=== PATIENT | male | born 1985 | race Caucasian/White ===

== ENCOUNTER 2016-09-06 11:53 | Emergency (ER) | payer SELFPAY ==
[~2016-09-06] VITALS: Ht 175.3 cm; Wt 77.1 kg
[~2016-09-06 11:53] MED LIST: HYDR-971 PO; SULF1TAB24 PO
[2016-09-06] MEDS ORDERED: SULF1TAB23 PO (12:42)
[2016-09-06 12:50] VITALS: BP 113/73
--- NOTE | 2016-09-06 13:40 | ED.ADGEN ---
Past Medical History Past Medical History: No Pertinent History Past Surgical History: Other Additional Past Surgical Histo: I&D of facial wound Alcohol Use: Occasionally Drug Use: Methamphetamine Adult General Chief Complaint Chief Complaint: LOWER EXTREMITY SWELLING HPI HPI Patient is a 30 year old male presents to emergency department complaining of abscesses and infection to bilateral lower extremities. Patient has had these before. He notes these have been here approximately one week. He has noted draining from all of them he still continues to have redness and tenderness around them. He denies any fevers or chills. Review of Systems Review of Systems Constitutional: Denies fever or chills. [] Eyes: Denies change in visual acuity. [] HENT: Denies nasal congestion or sore throat. [] Respiratory: Denies cough or shortness of breath. [] Cardiovascular: Denies chest pain or edema. [] GI: Denies abdominal pain, nausea, vomiting, bloody stools or diarrhea. [] : Denies dysuria. [] Musculoskeletal: Denies back pain or joint pain. [] Integument: Denies rash. [] Neurologic: Denies headache, focal weakness or sensory changes. [] Endocrine: Denies polyuria or polydipsia. [] Lymphatic: Denies swollen glands. [] Psychiatric: Denies depression or anxiety. [] Allergies Allergies Allergies Coded Allergies Type Severity Reaction Last Updated Verified I S O L A T I O N *CONTACT* Allergy Unknown 09/06/16 Yes No Known Medication Allergies Allergy Unknown 09/06/16 Yes Physical Exam Physical Exam Constitutional: Well developed, well nourished, no acute distress, non-toxic appearance. [] HENT: Normocephalic, atraumatic, bilateral external ears normal, oropharynx moist, no oral exudates, nose normal. [] Eyes: PERRLA, EOMI, conjunctiva normal, no discharge. [] Neck: Normal range of motion, no tenderness, supple, no stridor. [] Cardiovascular:Heart rate regular rhythm, no murmur [] Lungs & Thorax: Bilateral breath sounds clear to auscultation [] Abdomen: Bowel sounds normal, soft, no tenderness, no masses, no pulsatile masses. [] Skin: Warm, dry, 4 small 1 x 1 cm abscesses in various stages of healing on the left lower extremity, the right lower extremity has an area of 8 x 8 cm of erythema with a central eschar that is no longer draining or indurated. Extremities: No tenderness, no cyanosis, no clubbing, ROM intact, no edema. [] Neurologic: Alert and oriented X 3, normal motor function, normal sensory function, no focal deficits noted. [] Psychologic: Affect normal, judgement normal, mood normal. [] Current Patient Data Vital Signs Vital Signs Date Time Temp Pulse Resp B/P Pulse Ox O2 Delivery O2 Flow Rate FiO2 09/06/16 12:50 92 18 113/73 98 Room Air 09/06/16 12:22 98.1 98.1 EKG EKG [] Radiology/Procedures Radiology/Procedures [] Course & Med Decision Making Course & Med Decision Making Pertinent Labs and Imaging studies reviewed. (See chart for details) Patient has been started on Bactrim and given supportive care as well as follow- up and return precautions. Cellulitis [] Dragon Disclaimer Dragon Disclaimer This electronic medical record was generated, in whole or in part, using a voice recognition dictation system. YVETTE BHANDARI MD Sep 06, 2016 13:40
== END 2016-09-06 12:51 | disposition home or self-care (01) ==
LOC: ER 11:53
DX: L03.116 Cellulitis of left lower limb (principal); L03.115 Cellulitis of right lower limb; F15.10 Other stimulant abuse, uncomplicated; Z91.041 Radiographic dye allergy status
CPT/HCPCS: 99283

== ENCOUNTER 2019-05-20 19:13 | Emergency (ER) | payer SELFPAY ==
[~2019-05-20] VITALS: Ht 175.3 cm; Wt 77.1 kg
[~2019-05-20 19:13] MED LIST changes: +HYDR-3164 PO; -HYDR-971 PO; +SULF1TAB23 PO
--- NOTE | 2019-05-20 19:35 | PHYS DOC ---
Past Medical History Past Medical History: No Pertinent History Past Surgical History: Other Additional Past Surgical Histo: I&D of facial wound Alcohol Use: Heavy Drug Use: Methamphetamine Adult General Chief Complaint Chief Complaint: ALCOHOL INTOXICATION HPI HPI 33-year-old male presents to the emergency department via EMS secondary to intoxication. Patient states he's done some meth as well as drank alcohol today. Patient was found by PD and subsequently brought to the ER for further evaluation. Patient denies any complaints on examination. Patient denies any chest pain, shortness breath, nausea, vomiting, abdominal pain. He is currently resting comfortably at this time. Patient without SI/HI All other ROS negative unless documented in HPI Review of Systems Review of Systems See Above Allergies Allergies Allergies Coded Allergies Type Severity Reaction Last Updated Verified I S O L A T I O N *CONTACT* Allergy Unknown 09/06/16 Yes No Known Medication Allergies Allergy Unknown 09/06/16 Yes Physical Exam Physical Exam See Above Constitutional: Well developed, well nourished, no acute distress, non-toxic appearance. [] HENT: Normocephalic, atraumatic, bilateral external ears normal, oropharynx moist, no oral exudates, nose normal. [] Eyes: PERRLA, EOMI, conjunctiva normal, no discharge. [] Cardiovascular:Heart rate regular rhythm, no murmur [] Lungs & Thorax: Bilateral breath sounds clear to auscultation [] Abdomen: Bowel sounds normal, soft, no tenderness, no masses, no pulsatile masses. [] Skin: Warm, dry, no erythema, no rash. [] Back: No tenderness, no CVA tenderness. [] Extremities: No tenderness,no edema. [] Neurologic: Alert and oriented X 3, no focal deficits noted. [] Psychologic: intoxicated [] Current Patient Data Vital Signs Vital Signs Date Time Temp Pulse Resp B/P (MAP) Pulse Ox O2 Delivery O2 Flow Rate FiO2 05/21/19 04:36 98 16 93/55 (68) 98 Room Air EKG EKG [] Radiology/Procedures Radiology/Procedures [] Course & Med Decision Making Course & Med Decision Making Pertinent Labs and Imaging studies reviewed. (See chart for details) []33-year-old male presents to the emergency department via EMS secondary to intoxication. Patient states he's done some meth as well as drank alcohol today. Patient was found by PD and subsequently brought to the ER for further evaluation. Patient denies any complaints on examination. Patient denies any chest pain, shortness breath, nausea, vomiting, abdominal pain. He is currently resting comfortably at this time. Patient has no family, states he is from [place]. Patient denies SI/HI. Patient without acute complaints No labs/imaging obtained given no acute complaints or findings on exam Patient reassessed and at baseline - nd home Dragon Disclaimer Dragon Disclaimer This electronic medical record was generated, in whole or in part, using a voice recognition dictation system. Departure Departure Impression: Primary Impression: Alcohol intoxication Additional Impression: Substance abuse Disposition: HOME, SELF-CARE Condition: IMPROVED Referrals: NO PCP (PCP) Patient Instructions: Alcohol Intoxication, [id number], Substance Abuse-Brief Additional Instructions: Follow up with PCP as needed Tylenol/Motrin as needed for pain Cessation of Alcohol and Substance Abuse Problem Qualifiers Primary Impression: Alcohol intoxication Complication of substance-induced condition: uncomplicated Qualified Codes: F10.920 - Alcohol use, unspecified with intoxication, uncomplicated STEPHANE GE MD May 20, 2019 19:35
[2019-05-21 04:36] VITALS: BP 93/55
== END 2019-05-21 05:14 | disposition home or self-care (01) ==
LOC: ER 19:13
DX: F10.229 Alcohol dependence with intoxication, unspecified (principal); Y90.9 Presence of alcohol in blood, level not specified; F15.10 Other stimulant abuse, uncomplicated; Z91.041 Radiographic dye allergy status
CPT/HCPCS: 99283

== ENCOUNTER 2019-09-01 01:15 | Emergency (ER) | payer SELFPAY ==
[~2019-09-01] VITALS: Ht 177.8 cm; Wt 81.8 kg
--- NOTE | 2019-09-01 01:25 | PHYS DOC ---
Past Medical History Past Medical History: No Pertinent History Past Surgical History: Other Additional Past Surgical Histo: I&D of facial wound Smoking Status: Current Every Day Smoker Alcohol Use: Heavy Drug Use: Methamphetamine Adult General Chief Complaint Chief Complaint: ABDOMINAL PAIN HPI HPI Patient is a 33 year old white male who presents via EMS secondary to complaint of epigastric abdominal pain that started approximately 2 hours ago and is currently rated 8/10 located in the epigastric region. No medications taken prior to arrival. Denies nausea, vomiting, diarrhea, fever or chills. He states that his pain is worse with movement. He has had his appendix removed. Review of Systems Review of Systems All other ROS is negative unless otherwise stated in HPI Current Medications Current Medications Current Medications Medications (Trade) Dose Ordered Sig/Alisia Start Time Stop Time Status Last Admin Dose Admin Fentanyl Citrate (Fentanyl 2ml Vial) 50 mcg 1X ONCE 09/01/19 01:45 09/01/19 01:48 DC 09/01/19 02:10 50 MCG Multi-Ingredient Mouthwash/Gargle (Gi Cocktail) 20 ml 1X ONCE 09/01/19 01:45 09/01/19 01:48 DC 09/01/19 01:52 20 ML Ondansetron HCl (Zofran) 4 mg 1X ONCE 09/01/19 01:45 09/01/19 01:48 DC 09/01/19 02:09 4 MG Sodium Chloride 1,000 ml @ 1,000 mls/hr 1X ONCE 09/01/19 01:45 09/01/19 02:44 09/01/19 01:52 1,000 MLS/HR Allergies Allergies Allergies Coded Allergies Type Severity Reaction Last Updated Verified I S O L A T I O N *CONTACT* Allergy Unknown 09/06/16 Yes No Known Medication Allergies Allergy Unknown 09/06/16 Yes Physical Exam Physical Exam See above Constitutional: Well developed, well nourished, no acute distress, non-toxic appearance. [] HENT: Normocephalic, atraumatic, bilateral external ears normal, oropharynx moist, no oral exudates, nose normal. [] Eyes: PERRLA, EOMI, conjunctiva normal, no discharge. [] Neck: Normal range of motion, no tenderness, supple, no stridor. [] Cardiovascular:Heart rate regular rhythm, no murmur [] Lungs & Thorax: Bilateral breath sounds clear to auscultation [] Abdomen: Bowel sounds normal, soft, moderate epigastric tenderness to palpation, no masses, no pulsatile masses. [] Skin: Warm, dry, no erythema, no rash. [] Back: No tenderness, no CVA tenderness. [] Extremities: No tenderness, no cyanosis, no clubbing, ROM intact, no edema. [] Neurologic: Alert and oriented X 3, normal motor function, normal sensory function, no focal deficits noted. [] Psychologic: Affect normal, judgement normal, mood normal. [] Current Patient Data Vital Signs Vital Signs Date Time Temp Pulse Resp B/P (MAP) Pulse Ox O2 Delivery O2 Flow Rate FiO2 09/01/19 02:10 16 98 Room Air 09/01/19 01:15 97.7 73 144/88 (106) 97.7 Lab Values Laboratory Tests Test 09/01/19 01:26 09/01/19 01:41 White Blood Count 6.0 x10^3/uL (4.0-11.0) Red Blood Count 4.93 x10^6/uL (4.30-5.70) Hemoglobin 14.9 g/dL (13.0-17.5) Hematocrit 43.3 % (39.0-53.0) Mean Corpuscular Volume 88 fL (79-100) Mean Corpuscular Hemoglobin 30 pg (25-35) Mean Corpuscular Hemoglobin Concent 34 g/dL (31-37) Red Cell Distribution Width 14.7 % (11.5-14.5) H Platelet Count 332 x10^3/uL (140-400) Neutrophils (%) (Auto) 38 % (31-73) Lymphocytes (%) (Auto) 44 % (24-48) Monocytes (%) (Auto) 11 % (0-9) H Eosinophils (%) (Auto) 5 % (0-3) H Basophils (%) (Auto) 1 % (0-3) Neutrophils # (Auto) 2.3 x10^3/uL (1.8-7.7) Lymphocytes # (Auto) 2.6 x10^3/uL (1.0-4.8) Monocytes # (Auto) 0.7 x10^3/uL (0.0-1.1) Eosinophils # (Auto) 0.3 x10^3/uL (0.0-0.7) Basophils # (Auto) 0.1 x10^3/uL (0.0-0.2) Sodium Level 140 mmol/L (136-145) Potassium Level 4.2 mmol/L (3.5-5.1) Chloride Level 104 mmol/L (98-107) Carbon Dioxide Level 29 mmol/L (21-32) Anion Gap 7 (6-14) Blood Urea Nitrogen 13 mg/dL (8-26) Creatinine 0.9 mg/dL (0.7-1.3) Estimated GFR (Cockcroft-Gault) 96.6 BUN/Creatinine Ratio 14 (6-20) Glucose Level 100 mg/dL (70-99) H Calcium Level 8.9 mg/dL (8.5-10.1) Total Bilirubin 0.3 mg/dL (0.2-1.0) Aspartate Amino Transferase (AST) 55 U/L (15-37) H Alanine Aminotransferase (ALT) 177 U/L (16-63) H Alkaline Phosphatase 141 U/L (46-116) H Troponin I Quantitative < 0.017 ng/mL (0.000-0.055) Total Protein 6.5 g/dL (6.4-8.2) Albumin 3.6 g/dL (3.4-5.0) Albumin/Globulin Ratio 1.2 (1.0-1.7) Lipase 157 U/L (73-393) Ethyl Alcohol Level < 10 mg/dL (0-10) Urine Collection Type Unknown Urine Color Yellow Urine Clarity Clear Urine pH 6.5 Urine Specific [place] 1.015 Urine Protein Negative mg/dL (NEG-TRACE) Urine Glucose (UA) Negative mg/dL (NEG) Urine Ketones (Stick) Negative mg/dL (NEG) Urine Blood Negative (NEG) Urine Nitrite Negative (NEG) Urine Bilirubin Negative (NEG) Urine Urobilinogen Dipstick 0.2 mg/dL (0.2 mg/dL) Urine Leukocyte Esterase Negative (NEG) Urine RBC 0 /HPF (0-2) Urine WBC 0 /HPF (0-4) Urine Squamous Epithelial Cells Occ /LPF Urine Bacteria 0 /HPF (0-FEW) Urine Opiates Screen Neg (NEG) Urine Methadone Screen Neg (NEG) Urine Barbiturates Neg (NEG) Urine Phencyclidine Screen Neg (NEG) Urine Amphetamine/Methamphetamine Neg (NEG) Urine Benzodiazepines Screen Neg (NEG) Urine Cocaine Screen Neg (NEG) Urine Cannabinoids Screen Neg (NEG) Urine Ethyl Alcohol Neg (NEG) Laboratory Tests 09/01/19 01:26 Laboratory Tests 09/01/19 01:26 EKG EKG [] Radiology/Procedures Radiology/Procedures ACUTE ABDOMEN SERIES History: Epigastric pain. Technique: Supine and upright views of the abdomen. Comparison: None. Findings: No consolidation or pleural effusion. Normal heart size. No pneumothorax. No pneumoperitoneum. Several nondilated air-filled loops of small bowel within the mid abdomen. Air and stool scattered throughout the imaged colon. No significant air-fluid levels. Impression: 1. Nonobstructed bowel gas pattern.[] Course & Med Decision Making Course & Med Decision Making Pertinent Labs and Imaging studies reviewed. (See chart for details) 0213: Patient is feeling better after GI cocktail. His abdominal x-ray shows gaseous distention without obstruction. He has no evidence of infection. His liver enzymes are mildly elevated due to unknown significance at this time; I discussed with him when he obtains a primary care physician he should have follow-up on this. At this time the patient is feeling better so we will discharge him home. He states he does not have the means to start on any kind of antacid medication. Dragon Disclaimer Dragon Disclaimer This electronic medical record was generated, in whole or in part, using a voice recognition dictation system. Departure Departure Impression: Primary Impression: Epigastric pain Additional Impression: Elevated liver enzymes Disposition: HOME, SELF-CARE Condition: IMPROVED Referrals: NO PCP (PCP) Patient Instructions: Abdominal Pain (Nonspecific) Additional Instructions: Please try and establish care with a doctor as soon as possible. You should recheck your liver enzymes and 1-2 months. Problem Qualifiers MARK ANTHONY SHAY DO Sep 01, 2019 01:25
[2019-09-01 01:35] LABS: BASO # 0.1 x10^3/uL (0.0-0.2); BASO % 1 % (0-3); EOS # 0.3 x10^3/uL (0.0-0.7); EOS % 5 % (0-3); HEMATOCRIT 43.3 % (39.0-53.0); HEMOGLOBIN 14.9 g/dL (13.0-17.5); LYMPH # 2.6 x10^3/uL (1.0-4.8); LYMPH % 44 % (24-48); MEAN CORPUSCULAR HEMOGLOBIN 30 pg (25-35); MEAN CORPUSCULAR HGB CONC 34 g/dL (31-37); MEAN CORPUSCULAR VOLUME 88 fL (79-100); MONO # 0.7 x10^3/uL (0.0-1.1); MONO % 11 % (0-9); NEUT # 2.3 x10^3/uL (1.8-7.7); NEUT % 38 % (31-73); PLATELET COUNT 332 x10^3/uL (140-400); RED BLOOD COUNT 4.93 x10^6/uL (4.30-5.70); RED CELL DISTRIBUTION WIDTH 14.7 % (11.5-14.5)
--- NOTE | 2019-09-01 01:43 | RAD ---
ACUTE ABDOMEN SERIES History: Epigastric pain. Technique: Supine and upright views of the abdomen. Comparison: None. Findings: No consolidation or pleural effusion. Normal heart size. No pneumothorax. No pneumoperitoneum. Several nondilated air-filled loops of small bowel within the mid abdomen. Air and stool scattered throughout the imaged colon. No significant air-fluid levels. Impression: 1. Nonobstructed bowel gas pattern. Electronically signed by: Kristopher Singh DO (09/01/2019 1:39 AM) [id number]
[2019-09-01] MEDS ORDERED: LIDO:MAALOX 1:1 20 ML SINGLE DOSE. SWSW ONE (01:45)
[2019-09-01] MEDS ORDERED: IV NORMAL SALINE 1000ML BAG 1,000 ML IV ONE (01:45)
[2019-09-01] MEDS ORDERED: ONDANSETRON PF 4 MG/2 ML VIAL. IVP ONE (01:45)
[2019-09-01] MEDS ORDERED: fentaNYL PF VIAL 100 MCG/2 ML VIAL IVP ONE (01:45)
[2019-09-01 01:47] LABS: ALBUMIN 3.6 g/dL (3.4-5.0); ALBUMIN/GLOBULIN RATIO 1.2 (1.0-1.7); CALCIUM 8.9 mg/dL (8.5-10.1); CREATININE 0.9 mg/dL (0.7-1.3); GFR 96.6; POTASSIUM 4.2 mmol/L (3.5-5.1); TOTAL BILIRUBIN 0.3 mg/dL (0.2-1.0); TOTAL PROTEIN 6.5 g/dL (6.4-8.2)
[2019-09-01 01:50] LABS: BILIRUBIN,URINE NEGATIVE (NEG); CLARITY,URINE CLEAR; COLOR,URINE YELLOW; NITRITE,URINE NEGATIVE (NEG); PH,URINE 6.5; PROTEIN,URINE NEGATIVE (NEG-TRACE); UROBILINOGEN,URINE 0.2 mg/dL (0.2 mg/dL)
[2019-09-01 01:57] LABS: BARBITURATES NEG (NEG); BENZODIAZEPINES NEG (NEG); CANNABINOIDS NEG (NEG); COCAINE NEG (NEG); METHADONE NEG (NEG); OPIATES NEG (NEG); PHENCYCLIDINE NEG (NEG)
[2019-09-01 01:59] LABS: BACTERIA,URINE 0 /HPF (0-FEW); RBC,URINE 0 /HPF (0-2); SQUAMOUS EPITHELIAL CELL,UR OCC /LPF; WBC,URINE 0 /HPF (0-4)
[2019-09-01 02:00] LABS: AMPHETAMINE/METHAMPHETAMINE NEG (NEG)
[2019-09-01 02:19] VITALS: BP 122/79
== END 2019-09-01 02:34 | disposition home or self-care (01) ==
LOC: ER 01:15
DX: R10.13 Epigastric pain (principal); R94.5 Abnormal results of liver function studies; F15.90 Other stimulant use, unspecified, uncomplicated; F10.10 Alcohol abuse, uncomplicated; F17.200 Nicotine dependence, unspecified, uncomplicated; Z98.890 Other specified postprocedural states; Z90.89 Acquired absence of other organs
CPT/HCPCS: 36415; 74022; 80053; 80307; 81001; 83690; 84484; 85025; 96374; 96375; 99284; G0480; J2405; J3010; J7030

== ENCOUNTER 2021-01-27 20:30 | Emergency (ER) | payer SELFPAY ==
[~2021-01-27] VITALS: Ht 182.9 cm; Wt 80.0 kg
--- NOTE | 2021-01-27 20:49 | PHYS DOC ---
Past Medical History Past Medical History: No Pertinent History Past Surgical History: Appendectomy, Other Additional Past Surgical Histo: I&D of facial wound Smoking Status: Current Every Day Smoker Alcohol Use: Heavy Drug Use: Methamphetamine General Adult EDM: Chief Complaint: Methamphetamine and alcohol use, HPI: HPI: 35-year-old male with a reported history of alcohol and methamphetamine abuse was brought in by EMS after he was found sleeping outside of a person's house in the yard with his pants off, they had called the police, the patient was speaking in a confused manner so sent to the emergency room. He denies any physical complaints, he says he was drinking alcohol and using methamphetamine, history is not completely obtainable given his intoxication, he denies any suicidal or homicidal thoughts, denies any paranoid ideation, denies any fever, no headache, no chest pain or shortness of breath, Review of Systems: Review of Systems: General: no fevers , no chills, no general weakness Eyes: no blurred vision, no diplopia Skin: no rashes Neck: no swelling, no neck stiffness, no neck pain Heme: no bleeding, no lymph node enlargement Ear/Nose/Throat: No sore throat, no runny nose, no hearing loss, no difficulty swallowing Cardiovascular: no Chest pain, no palpitations Respiratory: No dyspnea, no cough, no hemoptysis Gastrointestinal: No abdominal pain, no nausea, no vomiting, no diarrhea, no blood in stool Genitourinary: no dysuria, no hematuria Musculoskeletal: no back pain, no leg pain, no arm pain, no arthralgia Neurologic: no headaches, no dizziness, no focal numbness/tingling, no focal weakness Psych: Positive for substance abuse, however no suicidal or homicidal thoughts *All review of systems are negative other than what is noted above Heart Score: C/O Chest Pain: No Risk Factors: Risk Factors: DM, Current or recent (<one month) smoker, HTN, HLP, family history of CAD, obesity. Risk Scores: Score 0 - 3: 2.5% MACE over next 6 weeks - Discharge Home Score 4 - 6: 20.3% MACE over next 6 weeks - Admit for Clinical Observation Score 7 - 10: 72.7% MACE over next 6 weeks - Early Invasive Strategies Current Medications: Current Medications Medications (Trade) Dose Ordered Sig/Alisia Start Time Stop Time Status Last Admin Dose Admin Lorazepam (Ativan Inj) 2 mg 1X ONCE 01/27/21 21:00 01/27/21 21:01 Allergies: Allergies: Allergies Coded Allergies Type Severity Reaction Last Updated Verified I S O L A T I O N *CONTACT* Allergy Unknown 09/06/16 Yes No Known Medication Allergies Allergy Unknown 09/06/16 Yes Physical Exam: PE: Gen-well appearing, no acute distress Head- normocephalic/atraumatic ENT: atraumatic, oropharynx clear neck: Supple, full range of motion, strength, no rigidity, no JVD lungs: No distress, speaks in full sentences cardiovascular: Regular rate, no JVD, peripheral circulation intact in all extremities abdomen: atraumatic, nondistended musculoskeletal: Full range of motion and strength in all extremities, atraumatic skin: Intact, no rashes neurologic: Alert and oriented x2, no focal deficits or abnormal movements were difficult to get complete neurologic exam given his intoxication psych: Slightly confused affect however he is alert and oriented, no suicidal homicidal thoughts EKG: EKG: [] Radiology/Procedures: Radiology/Procedures: [] Course & Med Decision Making: Course & Med Decision Making Pertinent Labs and Imaging studies reviewed. (See chart for details) [] Patient brought in by EMS for polysubstance abuse and intoxication of the patient reports methamphetamine and alcohol intoxication, I do not see any localizing neurological planes of deficits on exam, will get labs, will observe him, the patient is mildly agitated on arrival so I will give him some Ativan to help subdue him so we can observe him, no indication for imaging, will closely monitor this patient 934pm update: The patient is uncooperative and trying to pull off his monitor leads and get out of bed, I do believe he is too intoxicated to be discharged we will give him some Ativan and Geodon while we continue to monitor and work-up the patient [id number]: Patient is comfortable, vital signs are normal, he was given some Geodon and Ativan for agitation, I do not believe he is quite ready to be discharged yet but in the next hour or 2 will reassess him and reevaluate the patient 313am patient now awake, alert, clinically sober and ambulatory with steady gait, believe he stable for discharge at this time Patient was seen in the ED for polysubstance abuse including methamphetamine and alcohol he achieved clinical sobriety at this time and is not a threat to harmi ng himself or others and is asymptomatic, there is no apparent evidence of any emergency medical pathology at this time, patient was advised follow-up with their primary care provider /physician in the next 24-48 hours, he does not have one-sided refer him to our on-call primary care family medicine doctor to establish care, and to return to the ED before then if any new or worsening / concerning symptoms had developed. All questions and concerns were addressed at time of disposition Dragon Disclaimer: Dragon Disclaimer: This electronic medical record was generated, in whole or in part, using a voice recognition dictation system. Departure Departure Impression: Primary Impression: Polysubstance abuse Disposition: HOME / SELF CARE / HOMELESS Condition: IMPROVED Referrals: NO PCP (PCP) SARITA GILLIS MD Patient Instructions: Alcohol Intoxication, Methamphetamine Abuse, Complications Additional Instructions: Please do not drink alcohol to excess or use illegal drugs, I am referring you to a primary care doctor to establish care and I recommend that you follow-up within 48 hours, return to the nearest emergency room before that if any new or concerning symptoms develop ANDREW KESSLER MD Jan 27, 2021 20:49
[2021-01-27] MEDS ORDERED: ZIPRASIDONE IM 20 MG VIAL. IM ONE (22:00)
[2021-01-28] VITALS: BP_DIAS 73
[2021-01-28 03:25] VITALS: BP_SYST 128
== END 2021-01-28 03:25 | disposition home or self-care (01) ==
LOC: ER 20:30
DX: F15.10 Other stimulant abuse, uncomplicated (principal); F10.20 Alcohol dependence, uncomplicated; Y90.9 Presence of alcohol in blood, level not specified; F17.200 Nicotine dependence, unspecified, uncomplicated; Z91.041 Radiographic dye allergy status
CPT/HCPCS: 96372; 99285; J2060; J3486

== ENCOUNTER 2021-03-10 08:55 | Emergency (ER) | payer SELFPAY ==
[~2021-03-10] VITALS: Ht 177.8 cm; Wt 79.5 kg
[2021-03-10 10:03] VITALS: BP 107/63
--- NOTE | 2021-03-10 10:59 | PHYS DOC ---
Past Medical History Past Medical History: No Pertinent History Additional Past Medical Histor: substance abuse/etoh Past Surgical History: Appendectomy, Other Additional Past Surgical Histo: I&D of facial wound Smoking Status: Current Every Day Smoker Alcohol Use: Heavy Drug Use: Methamphetamine General Adult EDM: Chief Complaint: LOWER EXT PAIN HPI: HPI: 35-year-old homeless male who denies any significant past medical history presents the ED with complaints of painless "knot on the inside of my thigh" that patient noticed last night after he was jumping in trash cans looking for food. Patient denies any skin injury, fever, chills or unexplained weight loss, dysuria, hematuria or genital rash. Denies any recent flulike symptoms or diarrhea. No history of IV drug use. Review of Systems: Review of Systems: Constitutional: Denies fever or chills. [] Eyes: Denies change in visual acuity. [] HENT: Denies nasal congestion or sore throat. [] Respiratory: Denies cough or shortness of breath. [] Cardiovascular: Denies chest pain or edema. [] GI: Denies nausea or vomiting : Denies dysuria or urethral discharge Musculoskeletal: Denies back pain or joint pain. [] Integument: Denies rash or diaphoresis Neurologic: Denies headache, focal weakness or sensory changes. [] Psychiatric: Denies depression or anxiety. [] Heart Score: C/O Chest Pain: No Risk Factors: Risk Factors: DM, Current or recent (<one month) smoker, HTN, HLP, family history of CAD, obesity. Risk Scores: Score 0 - 3: 2.5% MACE over next 6 weeks - Discharge Home Score 4 - 6: 20.3% MACE over next 6 weeks - Admit for Clinical Observation Score 7 - 10: 72.7% MACE over next 6 weeks - Early Invasive Strategies Allergies: Allergies: Allergies Coded Allergies Type Severity Reaction Last Updated Verified I S O L A T I O N *CONTACT* Allergy Unknown 09/06/16 Yes No Known Medication Allergies Allergy Unknown 09/06/16 Yes Physical Exam: PE: Constitutional: Well developed, well nourished, no acute distress, non-toxic appearance. HENT: Normocephalic, atraumatic, Eyes: EOMI, conjunctiva normal, no discharge. Neck: Normal range of motion, supple, Cardiovascular: S1/2 present, regular rhythm Lungs & Thorax: Speaking in full sentences, bilateral equal chest rise, no tachypnea or increased work of breathing Skin: Warm, dry, no erythema, no rash. [] Extremities: No tenderness, no cyanosis, no lower extremity edema, hard/painless round dime-sized nodule approximately 6 cm inferior from the inguinal crease in middle/medial thigh - no rash/abrasions or skin break Neurologic: Alert and oriented X 3, normal motor function, normal sensory function, no focal deficits noted. [] Psychologic: Affect normal, judgement normal, mood normal. [] Current Patient Data: Vital Signs: Vital Signs Date Time Temp Pulse Resp B/P (MAP) Pulse Ox O2 Delivery O2 Flow Rate FiO2 03/10/21 10:03 99.1 93 22 107/63 (78) 98 Room Air 99.1 EKG: EKG: [] Radiology/Procedures: Radiology/Procedures: [] Course & Med Decision Making: Course & Med Decision Making Pertinent Labs and Imaging studies reviewed. (See chart for details) Concern for right thigh lump that does not appear associated with skin - lesion is painless, nonmobile. Skin exam normal with no abrasions or signs of trauma. There is a broad differential of soft tissue masses. With no leg swelling or signs of DVT. Denies any UTI symptoms or diarrhea. No obvious infection. Will discharge home with strict ED return precautions were given for fever, night sweats or unexplained weight loss. Encouraged urgent outpatient follow-up with PMD and dermatology. Life-threatening processes were considered but are low suspicion at this time, given history, physical exam and ED workup. Pt was educated on all prescription medications and adverse effects. All patient's questions were answered and pt was stable at time of discharge. Life/limb-threatening differential includes but is not limited to, trauma (fracture, dislocation, laceration, compartment syndrome, tendon or ligament injury), neurovascular injury or deficitcva/tia, infection (osteomyelitis, abscess, cellulitis, septic arthritis, necrotizing fasciitis), deep vein thrombosis, renal/cardiac/liver disease, medication adverse effect, lymphedema/anasarca, vascular insufficiency or malignancy, I have spoken with the patient and/or caregivers. I explained the patient's condition, diagnoses and treatment plan based on the information available to me at this time. I have answered the patient and/or caregiver's questions and addressed any concerns. The patient and/or caregivers have a good understanding of patient's diagnosis, condition and treatment plan as can be expected at this point. Vital signs have been stable. Patient's condition is stable and appro priate for discharge from the emergency department. Patient will pursue further outpatient evaluation with primary care physician or other designated or consulting physician as outlined in the discharge instructions. The patient and/or caregivers are agreeable to this plan of care and follow-up instructions have been explained in detail. The patient and/or caregivers have received these instructions in written form and have expressed an understanding of the discharge instructions. The patient and/or caregivers are aware that any significant change of condition or worsening of symptoms should prompt immediate return to this or the closest emergency department or call to [facility] Disclaimer: Kayla Disclaimer: This electronic medical record was generated, in whole or in part, using a voice recognition dictation system. Departure Departure Impression: Primary Impression: Lump of right thigh Disposition: HOME / SELF CARE / HOMELESS Condition: STABLE Referrals: NO PCP (PCP) Follow-up with your primary care physician in 24 to 48 hours OR FOLLOW UP WITH FAMILY MEDICINE: [id number] [facility], [facility] [address] [place] [address] Patient Instructions: Lumpectomy Additional Instructions: Dermatology: FOR DEFINITIVE MANAGEMENT [place] [id number] [facility], [place] [address] EMERGENCY DEPARTMENT GENERAL DISCHARGE INSTRUCTIONS Thank you for coming to [facility] Emergency Department (ED) today and trusting us with you care. We trust that you had a positive experience in our Emergency Department. If you wish to speak to the department management, you may call the Director at [phone]. YOUR FOLLOW UP INSTRUCTIONS ARE FOLLOWS: 1. Do you have a private Doctor? If you do not have a private doctor, please a sk for a resource list of physicians or clinics that may be able to assist you with follow up care. 2. The Emergency Physicain has interpreted your x-rays. The X-Ray specialist will also review them. If there is a change in the findings, you will be notified in 48 hours when at all possible. 3. A lab test or culture has been done, your results will be reviewed and you will be notified if you need a change in treatment. ADDITIONAL INSTRUCTIONS AND INFORMATION: 1. Your care today has been supervised by a physician who is specially trained in emergency care. Many problems require more than one evaluation for a complete diagnosis and treatment. We recommend that you schedule your follow up appointment as recommended to ensure complete treatment of you illness or injury. If you are unable to obtain follow up care and continue to have a problem, or if your condition worsens, we recommend that you return to the ED. 2. We are not able to safely determine your condition over the phone nor are we able to give sound medical advice over the phone. For these safety reasons, if you call for medical advice we will ask you to come to the ED for further evaluation. 3. If you have any questions regarding these discharge instructions please call the ED at [phone]. SAFETY INFORMATION: In the interest of safety, wellness, and injury prevention; we encourage you to wear your sealbelt, if you smoke; quite smoking, and we encourage family to use a protective helmet for bicycling and other sporting events that present an increased risk for head injury. IF YOUR SYMPTOMS WORSEN OR NEW SYMPTOMS DEVELOP, OR YOU HAVE CONCERNS ABOUT YOUR CONDITION; OR IF YOUR CONDITION WORSENS WHILE YOU ARE WAITING FOR YOUR FOLLOW UP APPOINTMENT; EITHER CONTACT YOUR PRIMARY CARE DOCTOR, THE PHYSICIAN WHOSE NAME AND NUMBER YOU WERE GIVEN, OR RETURN TO THE ED IMMEDIATELY. BON CLARK DO Mar 10, 2021 10:59
--- NOTE | 2021-03-10 11:40 | RAD ---
EXAM: Right femur, 2 views. HISTORY: Inner thigh bump. Jumping injury. COMPARISON: None. FINDINGS: Frontal and lateral views of the right femur are obtained. There is no fracture, dislocatio n or subluxation. There is no lytic or sclerotic osseous lesion or periosteal reaction. There is no r adiodense foreign body. IMPRESSION: No acute osseous finding. Electronically signed by: Nila Zee MD (03/10/2021 11:37 AM) [id number]
== END 2021-03-10 11:04 | disposition home or self-care (01) ==
LOC: ER 08:55
DX: R22.41 Localized swelling, mass and lump, right lower limb (principal); F17.200 Nicotine dependence, unspecified, uncomplicated; Z59.0 Homelessness; F10.20 Alcohol dependence, uncomplicated; Y90.9 Presence of alcohol in blood, level not specified; Z91.041 Radiographic dye allergy status
CPT/HCPCS: 73552; 99283

== ENCOUNTER 2021-03-14 21:23 | Emergency (ER) | payer SELFPAY ==
[~2021-03-14] VITALS: Ht 177.8 cm; Wt 77.3 kg
[2021-03-14 23:40] VITALS: BP 98/80
--- NOTE | 2021-03-14 23:50 | PHYS DOC ---
Past Medical History Past Medical History: No Pertinent History Additional Past Medical Histor: substance abuse/etoh Past Surgical History: Appendectomy, Other Additional Past Surgical Histo: I&D of facial wound Smoking Status: Never Smoker Alcohol Use: Occasionally Drug Use: Methamphetamine General Adult EDM: Chief Complaint: FOREIGNBODY EAR HPI: HPI: 35-year-old male presents with a chief complaint of right ear pain. Patient states right ear pain x1 day. Patient feels like something is in his right ear. Review of Systems: Review of Systems: Review of systems: Constitutional symptoms- No fever, no chills. Eyes- No Discharge, No Visual Loss Respiratory symptoms- No shortness of breath, No wheezing, No Dyspnea on Exertion Cardiovascular Systems; No chest pain, No Palpitations, No syncope Gastrointestinal symptoms: NO abdominal pain, no nausea, no vomiting or diarrhea. Genitourinary symptoms: No dysuria. Musculoskeletal symptoms: No back pain No extremity pain. NEUROLOGICAL Symptoms: No headache, no generalized weakness; No focal Weakness Skin: No rash. HEENT positive right ear pain Heart Score: C/O Chest Pain: N/A Risk Factors: Risk Factors: DM, Current or recent (<one month) smoker, HTN, HLP, family history of CAD, obesity. Risk Scores: Score 0 - 3: 2.5% MACE over next 6 weeks - Discharge Home Score 4 - 6: 20.3% MACE over next 6 weeks - Admit for Clinical Observation Score 7 - 10: 72.7% MACE over next 6 weeks - Early Invasive Strategies Allergies: Allergies: Allergies Coded Allergies Type Severity Reaction Last Updated Verified I S O L A T I O N *CONTACT* Allergy Unknown 09/06/16 Yes No Known Medication Allergies Allergy Unknown 09/06/16 Yes Physical Exam: PE: General: alert, no acute distress. Skin: warm, dry and intact, no erythema, no rash. HENT: bilateral external ears normal, oropharynx moist, nose normal. Right TM obscured from wax no foreign bodies identified Head:: Normocephalic, atraumatic. Neck: Trachea midline. Eyes: EOMI, Normal conjunctiva, No drainage CARDIOVASCULAR: Regular rate and rhythm RESPIRATORY: No respiratory distress Back: Full range of motion. MUSCULOSKELETAL: Full range of motion of bilateral upper and lower extremities. GASTROINTESTINAL: Abdomen soft without rebound or guarding. NEUROLOGICAL: Alert and noted to person, place and time. No neurological deficits observed Psychiatric: Cooperative. Normal judgment Current Patient Data: Vital Signs: Vital Signs Date Time Temp Pulse Resp B/P (MAP) Pulse Ox O2 Delivery O2 Flow Rate FiO2 03/14/21 23:40 98.4 101 20 98/80 (86) 98 Room Air 98.4 EKG: EKG: [] Radiology/Procedures: Radiology/Procedures: [] Course & Med Decision Making: Course & Med Decision Making Pertinent Labs and Imaging studies reviewed. (See chart for details) [] Right ear irrigated by nursing. Large amount of wax removed. Patient treated with Tylenol. Patient discharged home. Dragon Disclaimer: Wantful Disclaimer: This electronic medical record was generated, in whole or in part, using a voice recognition dictation system. Departure Departure Impression: Primary Impression: Otalgia of right ear Additional Impression: Cerumen debris on tympanic membrane of right ear Disposition: HOME / SELF CARE / HOMELESS Condition: STABLE Referrals: NO PCP (PCP) Patient Instructions: Cerumen Impaction, Otalgia RAFAL HADLEY DO Mar 14, 2021 23:50
[2021-03-15] MEDS ORDERED: ACETAMINOPHEN 325 MG TABLET. PO ONE (00:45)
== END 2021-03-15 00:51 | disposition home or self-care (01) ==
LOC: ER 21:23
DX: H61.21 Impacted cerumen, right ear (principal); H92.01 Otalgia, right ear; Z91.041 Radiographic dye allergy status
CPT/HCPCS: 69209; 99282